=== PATIENT | male | born 1965 | race Caucasian/White ===

== ENCOUNTER 2018-01-06 10:17 | Emergency (ER) | payer OTHER ==
--- NOTE | 2018-01-06 10:44 | ED ---
Lower Extremity - HPI Summary HPI Summary: Patient is an otherwise healthy 52-year-old male presenting to the ED with chief complaint of left knee pain. He states he awoke 2 days ago and after a deep stretch started feeling left lateral knee pain. Endorses pain with ambulation. Endorses stiffness. Denies any erythema, warmth to the area. Endorses a small amount of left lateral knee swelling. He remains ambulatory, but with pain. Flexion with pain, extension is without pain. Denies any numbness or tingling in the ipsilateral leg. Denies any pain to the posterior knee or calf. Denies any hip or ankle pain. He has been taking ibuprofen and ice for relief. - History of Current Complaint Chief Complaint: EDExtremityLower Stated Complaint: LT KNEE SWELLING Time Seen by Provider: 01/06/18 10:29 Hx Obtained From: Patient Mechanism Of Injury: Unknown Onset of Pain: Days Onset/Duration: Days Severity Initially: Moderate Severity Currently: Moderate Pain Intensity: 4 Pain Scale Used: 0-10 Numeric Timing: Constant Location: Is Discrete @ - left lateral knee Character Of Pain: Aching Associated Signs And Symptoms: Negative: Swelling, Redness, Bruising Aggravating Factor(s): Standing, Ambulation Alleviating Factor(s): Rest Able to Bear Weight: Yes - Risk Factors Gout Risk Factors: Age Over 40, Male, Obesity DVT Risk Factors: Negative Septic Arthritis Risk Factor: Negative - Allergies/Home Medications Allergies/Adverse Reactions: Allergies Allergy/AdvReac Type Severity Reaction Status Date / Time mold Allergy Sneezing Verified 01/06/18 10:23 Home Medications: Home Medications Sitagliptin Phosphate [Januvia] 100 mg PO QPM 01/06/18 [History Confirmed ] PMH/Surg Hx/FS Hx/Imm Hx Previously Healthy: Yes - Immunization History Hx Pertussis Vaccination: No Immunizations Up to Date: Unable to Obtain/Confirm Infectious Disease History: No Infectious Disease History: Denies: Traveled Outside the [place] in Last 30 Days - Social History Occupation: Employed Full-time Lives: With Family Alcohol Use: Occasionally Hx Substance Use: No Substance Use Type: Reports: None Hx Tobacco Use: No Smoking Status (MU): Never Smoked Tobacco Review of Systems Constitutional: Negative Negative: Fever, Chills, Fatigue, Skin Diaphoresis Negative: Palpitations, Chest Pain Negative: Shortness Of Breath, Cough Genitourinary: Negative Positive: no symptoms reported, see HPI Positive: Arthralgia Skin: Negative Negative: Weakness, Paresthesia, Numbness All Other Systems Reviewed And Are Negative: Yes Physical Exam Triage Information Reviewed: Yes Vital Signs On Initial Exam: Initial Vitals Temp Pulse Resp BP Pulse Ox 98.2 F 72 16 145/87 97 01/06/18 10:20 01/06/18 10:20 01/06/18 10:20 01/06/18 10:20 01/06/18 10:20 Vital Signs Reviewed: Yes Appearance: Positive: Well-Appearing, Well-Nourished Skin: Positive: Skin Color Reflects Adequate Perfusion, Other - No erythema or ecchymosis noted Eyes: Positive: EOMI, AZUCENA, Conjunctiva Clear Respiratory/Lung Sounds: Positive: Clear to Auscultation, Breath Sounds Present Cardiovascular: Positive: Normal, RRR, Pulses are Symmetrical in both Upper and Lower Extremities Musculoskeletal: Positive: Limited @ - Limited flexion due to pain, Pain @ - Left-sided knee pain. Negative: Hi Sign Left, Ih Sign Right, Edema Left, Edema Right Neurological: Positive: Speech Normal Psychiatric: Positive: Normal, Affect/Mood Appropriate Diagnostics - Vital Signs Vital Signs Temp Pulse Resp BP Pulse Ox 01/06/18 10:20 98.2 F 72 16 145/87 97 - Laboratory Lab Statement: Any lab studies that have been ordered have been reviewed, and results considered in the medical decision making process. Lower Extremity Course/Dx - Course Course Of Treatment: On physical examination, negative anterior drawer test. Negative Faheem's. Patient states the knee is very stiff and is painful with flexion and better with extension. Ice and ibuprofen with small amount of improvement. He remains ambulatory. X-ray obtained of the knee. She is suprapatellar effusion. Patient remains ambulatory. I have given him the results of the tests and have explained ibuprofen, ice, compression and elevation is conservative treatments. I've also given him a referral to orthopedics for any worsening symptoms. He is okay with this plan. - Diagnoses Provider Diagnoses: Suprapatellar effusion of knee Discharge - Sign-Out/Discharge Documenting (check all that apply): Discharge/Admit/Transfer - Discharge Plan Condition: Stable Disposition: HOME Patient Education Materials: Swollen Knee Joint (ED) Referrals: Damon Larsen MD [Medical Doctor] - Ana Kapoor MD [Primary Care Provider] - Additional Instructions: Compression to the area Ibuprofen 600mg three times daily ice Follow up with orthopedics if symptoms persist or worsen - Billing Disposition and Condition Condition: STABLE Disposition: Home
--- NOTE | 2018-01-06 10:59 | RAD ---
Indication: Left knee pain. 4 views of left knee demonstrates no fracture. There may be a small joint effusion. Degenerative changes of the patellofemoral joint is noted. IMPRESSION: Suprapatellar effusion. Degenerative changes of the patellofemoral joint.
[2018-01-06 11:20] VITALS: BP 132/82
== END 2018-01-06 11:19 | disposition home or self-care (01) ==
LOC: ED 10:17
DX: M25.462 Effusion, left knee (principal); M17.12 Unilateral primary osteoarthritis, left knee
CPT/HCPCS: 99282